=== PATIENT | male | born 1970 | race Caucasian/White ===

== ENCOUNTER 2021-04-15 19:06 | Emergency (ER) | payer OTHER, BC, SELFPAY ==
[2021-04-15 19:17] VITALS: BP 173/103; PULSE 92; RESP 16; TEMP 36.9; O2SAT 100; BMI 31.1
[2021-04-15 19:55] VITALS: BP 168/95
--- NOTE | 2021-04-15 20:14 | PC.NURSE ---
[employer] AWARE OF PT NON-SYMPTOMATIC HIGH BP. PER [employer] PT WILL NEEDED TO F/U WITH PCP.
--- NOTE | 2021-04-15 20:19 | ED.WOUNDLAC ---
HPI - Wound/Laceration General Chief Complaint: Wound/Laceration Stated Complaint: hand lac Time Seen by Provider: 04/15/21 19:47 Source: patient Mode of arrival: ambulatory Limitations: no limitations History of Present Illness HPI narrative: 50-year-old male here with laceration to left hand. Patient tells me he was throwing away a bag of trash when a shard of glass cut his left hand. His tetanus is up-to-date. Denies any numbness, tingling. Related Data Allergies Allergy/AdvReac Type Severity Reaction Status Date / Time Seasonal Allergies Allergy Runny Nose Verified 04/15/21 19:23 Review of Systems Review of Systems: Yes all other systems are reviewed and are negative Constitutional: Constitutional: Reports no additional constitutional complaints, Denies body ache(s), Denies chills, Denies fever(s), Denies headache(s) and Denies weakness Eyes: Eyes: Reports no additional eye complaints and Denies change in vision ENT: Reports system reviewed and no additional complaints, except as documented, Denies dizziness, Denies headache(s), Denies nasal congestion, Denies nasal discharge and Denies neck pain Cardiovascular: Cardiovascular: Reports no additional cardiovascular complaints, Denies chest pain, Denies leg edema and Denies dyspnea Respiratory: Respiratory: Reports no additional respiratory complaints, Denies cough and Denies dyspnea Gastrointestinal: Gastrointestinal: Reports no additional gastrointestinal complaints, Denies abdominal pain, Denies diarrhea, Denies nausea and Denies vomiting Genitourinary: Genitourinary: Denies urinary incontinence Musculoskeletal: Musculoskeletal: Reports no additional musculoskeletal complaints, Denies back pain, Denies arthralgias, Denies joint swelling, Denies neck pain, Denies numbness and Denies tingling Integumentary/Breasts: Skin/Breast: Reports system reviewed and no additional complaints, except as docu and Denies rash Comments: laceration Neurologic: Reports system reviewed and no additional complaints, except as documented, Denies Abnormal speech present, Denies dizziness, Denies headache(s), Denies numbness, Denies tingling and Denies weakness PMFSH Past Medical History Attestation statement: The following information was validated with the patient. Source: old records reviewed and nursing notes reviewed Medical History No known health problems Social History Social History Advance Directives: No Advance Directives Information Provided: No Physical Exam Vital Signs: Vital Signs: Last Vital Signs Temp 98.5 F 04/15/21 19:17 Pulse 92 04/15/21 19:17 Resp 16 04/15/21 19:17 BP 168/95 H 04/15/21 19:55 Pulse Ox 100 04/15/21 19:17 Body Mass Index 31.1 Const: General: cooperative, healthy appearing, comfortable and no acute distress Orientation/consciousness: patient oriented x3 Limitations: no limitations HENMT: Head: Yes normal to inspection Ears: hearing grossly normal bilaterally General nose exam: Normal external nose present Face and sinus: Yes normal facial exam Mouth: Normal oral and palatal mucosa present Throat: Yes posterior oropharynx normal Eyes: General: appearance normal, both eyes and all related structures Pupils: Equal, round and reactive pupils present Neck: Neck: Yes normal visual inspection Chest: Chest palpation & inspection: normal inspection of the chest Resp: Effort & Inspection: normal respiratory effort Auscultation: clear to auscultation bilaterally Cardio: Rate: regular rate Rhythm: regular rhythm Peripheral pulses: Peripheral pulses 2+ throughout GI: Inspection: Yes normal to inspection Palpation (GI): Soft to palpation and nontender Auscultation: normal bowel sounds Back/Spine/Pelvis: Thoracic/Lumbar Spine: thoracic and lumbar spine normal to inspection Skin: General skin exam: no rashes or lesions noted Neuro: General: patient oriented x3, no focal motor deficits and normal sensation to monofilament Cranial nerves: Yes Equal, round and reactive pupils present Cognition (Neuro): normal cognition Speech: No Abnormal speech present Gait exam (Neuro): Normal gait present Motor exam (neuro): 5/5 motor strength present throughout Extrem: Other: to the dorsal aspect of the left hand there is a 1 cm laceration noted with no active bleeding. General: Yes normal to inspection Course Course Course Narrative: superficial laceration to the left hand with no palpable foreign body. Full range of motion of the hand. Bleeding is controlled. Tetanus is up-to-date. See wound repair note. Asymptomatic hypertension which improved on discharge. Patient can follow up with his primary care doctor in regards to this Procedures Procedure Narrative Procedure Narrative: Laceration was cleansed with a hydrogen peroxide and normal saline mixture. The area was closed with skin adhesive with Steri-Strips applied over this. No palpable foreign body MDM - Wound/Laceration Differential Diagnosis Differential diagnosis: Likely laceration Medical Records Attestation: I reviewed the patient's medical records. Lab Data Attestation: I reviewed the patient's lab results. Discharge Plan Discharge Clinical Impression: Laceration Patient Disposition: Home, Self-Care Instructions: Laceration (ED) Referrals: Physician,Unknown [Primary Care Provider] - 2 days Stand Alone Forms: Work/School Release Interventions: ED Discharge Assessment Last Done: 04/15/21 20:12 Discharge Date/Time: 04/15/21 20:17 Print Language: Romanian
== END 2021-04-15 20:17 | disposition home or self-care (01) ==
PROVIDERS: Emergency Provider Emergency Medicine Emergency Medical Services
DX: S61.412A Laceration without foreign body of left hand, initial encounter (principal); W25.XXXA Contact with sharp glass, initial encounter; Y93.E9 Activity, other interior property and clothing maintenance; Y92.9 Unspecified place or not applicable; Y99.9 Unspecified external cause status
CPT/HCPCS: 12011; 99284

== ENCOUNTER 2022-11-21 20:57 | Emergency (ER) | payer OTHER, SELFPAY ==
--- NOTE | 2022-11-21 | ECG_ITS ---
Test Reason : chest pain Blood Pressure : / mmHG Vent. Rate : 074 BPM Atrial Rate : 074 BPM P-R Int : 160 ms QRS Dur : 096 ms QT Int : 382 ms P-R-T Axes : 038 015 107 degrees QTc Int : 424 ms Normal sinus rhythm Moderate voltage criteria for LVH, may be normal variant ( R in aVL , Sokolow-Ambrose ) T wave abnormality, consider lateral ischemia Abnormal ECG No previous ECGs available Referred By: Generic ED Physician Electronically Signed By:Juwan Mustafa
[2022-11-21 21:05] VITALS: BP 153/88; PULSE 80; RESP 18; TEMP 36.6; O2SAT 98; BMI 35.9
--- NOTE | 2022-11-21 21:30 | MHC.EDTECH ---
PT BLOOD DRAWN AND SENT TO LAB ,EKG DONE AND READ BY PROVIDER .
[2022-11-21 21:37] LABS: MANUAL DIFF FLAG NO
[2022-11-21 21:38] LABS: Basophils Absolute Auto 0.1 X10*3/uL (0.0-0.2); Basophils Percent Auto 1.1 % (0-2); Eosinophils Absolute Auto 0.1 X10*3/uL (0.0-0.4); Eosinophils Percent Auto 1.4 % (0-4); Hematocrit 40.6 % (42.0-52.0); Hemoglobin 14.2 g/dl (14.0-18.0); Imm Gran Abs Auto 0.02 X10*3/uL (0.00-0.03); Imm Gran Pct Auto 0.2 % (0.0-0.4); Lymphocytes Absolute Auto 4.2 X10*3/uL (1.2-4.9); Lymphocytes Percent Auto 45.3 % (20-40); Mean Corpuscular Hemoglobin 30.5 pg (27.0-33.0); Mean Corpuscular Volume 87.1 fL (80.0-98.0); Mean Platelet Volume 10.4 fL (9.4-12.4); Monocytes Absolute Auto 0.9 X10*3/uL (0.1-1.2); Monocytes Percent Auto 9.5 % (2-11); Neutrophils Percent Auto 42.5 % (45-73); Platelet Count 211 X10*3/uL (160-400); Red Blood Count 4.66 X10*6/uL (4.60-5.80); Red Cell Distribution Width 13.2 % (11.0-16.0); White Blood Count 9.4 X10*3/uL (4.8-10.8)
[2022-11-21 21:54] LABS: Anion Gap 15 (12-20); Blood Urea Nitrogen 15 mg/dL (9-16); Calcium 8.9 mg/dL (8.4-10.2); Carbon Dioxide 22 mmol/L (22-29); Chloride 105 mmol/L (96-108); Creatinine Clr Calc Pharmacy 121.8; Estimated Glomerular Filt Rate > 60; Glucose Random 150 mg/dL (60-115); Sodium 138 mmol/L (135-145)
[2022-11-21 22:02] LABS: Troponin-I High Sensitivity 5.1 ng/L (<3.5-35.0)
[2022-11-21 23:19] VITALS: BP 124/74; PULSE 69; RESP 18; TEMP 36.6; O2SAT 98
--- NOTE | 2022-11-22 00:07 | ED_ITS ---
HPI - Chest Pain General Chief Complaint: Chest Pain Stated Complaint: chest pain Time Seen by Provider: 11/21/22 23:26 Source: patient Mode of arrival: ambulatory Limitations: no limitations History of Present Illness HPI narrative: patient history of hypertension diagnosed yesterday on lisinopril and hydrochlorothiazide complaining of left-sided chest pain sharp in character with burning sensation in the back pain gets worse on palpation and movements no shortness of breath no diaphoresis no nausea or vomiting no syncope no palpitations Related Data Previous Rx's Medication Instructions Recorded ibuprofen 600 mg tablet 600 mg PO Q6H PRN fever or pain 11/22/22 #30 tabs Allergies Allergy/AdvReac Type Severity Reaction Status Date / Time Seasonal Allergies Allergy Runny Nose Verified 11/21/22 21:07 Review of Systems Review of Systems: Yes all other systems are reviewed and are negative [facility] Past Medical History Medical History No known health problems Social History Social History Advance Directives: No Advance Directives Information Provided: No Physical Exam Vital Signs: Vital Signs: Last Vital Signs Temp 97.8 F 11/21/22 23:19 Pulse 69 11/21/22 23:19 Resp 18 11/21/22 23:19 BP 124/74 11/21/22 23:19 Pulse Ox 98 11/21/22 23:19 O2 Del Method 11/21/22 23:19 BMI result Body Mass Index 35.9 Appearance: Alert. Oriented X3. No acute distress. Eyes: PERRLA, No Nystagmus ENT: Pharynx normal. Oral Mucosa moist Neck: Normal inspection. Neck supple. CVS: Normal heart rate and rhythm. Pulses normal left chest wall tenderness+. Respiratory: No respiratory distress. Equal air entry bilateral, no wheezing/rales/rhonchi Abdomen: Soft and nontender. Bowel sounds are present, no mass palpable, no CVA tenderness Skin: Skin warm and dry. Normal skin color. Normal skin turgor. Extremities: No lower extremity edema. No calf tenderness Neuro: Oriented X 3. No motor deficit. Medications Administered Discontinued Medications Generic Name Dose Route Start Last Admin Trade Name Freq PRN Reason Stop Dose Admin Ibuprofen 600 mg 11/22/22 00:08 11/22/22 00:19 Ibuprofen 600 Mg Tablet PO 11/22/22 00:09 600 mg ONCE ONE Administration Medical Decision Making Medical Decision Making [facility] Narrative: patient with atypical chest pain for more than 24 hours high sensitive troponin negative chest pain is reproducible patient advised to follow with PCP take NSAID Differential Diagnosis ACS/ CAD/ costochondritis Lab Data [facility] Lab Attestation statement: I reviewed the patient's lab results. 11/21/22 21:29 11/21/22 21:29 Labs: Lab Results 11/21/22 11/21/22 11/21/22 Range/Units 21:29 21:29 21:29 WBC 9.4 (4.8-10.8) X10*3/uL RBC 4.66 (4.60-5.80) X10*6/uL Hgb 14.2 (14.0-18.0) g/dl Hct 40.6 L (42.0-52.0) % MCV 87.1 (80.0-98.0) fL MCH 30.5 (27.0-33.0) pg MCHC 35.0 (31.0-36.0) g/dl RDW 13.2 (11.0-16.0) % Plt Count 211 (160-400) X10*3/uL MPV 10.4 (9.4-12.4) fL Immature Gran % (Auto) 0.2 (0.0-0.4) % Neut % (Auto) 42.5 L (45-73) % Lymph % (Auto) 45.3 H (20-40) % [place] % (Auto) 9.5 (2-11) % Eos % (Auto) 1.4 (0-4) % Baso % (Auto) 1.1 (0-2) % Lymph # (Auto) 4.2 (1.2-4.9) X10*3/uL [place] # (Auto) 0.9 (0.1-1.2) X10*3/uL Eos # (Auto) 0.1 (0.0-0.4) X10*3/uL Baso # (Auto) 0.1 (0.0-0.2) X10*3/uL Abs Immat Gran (auto) 0.02 (0.00-0.03) X10*3/uL Absolute Neuts (auto) 4.0 (2.0-8.3) x10*3/uL Absolute Nucleated RBC 0.000 (0.0-0.012) X10*3/uL Nucleated RBC % (auto) 0.0 (0.0-0.2) /100WBC Sodium 138 (135-145) mmol/L Potassium 4.0 (3.3-5.1) mmol/L Chloride 105 (96-108) mmol/L Carbon Dioxide 22 (22-29) mmol/L Anion Gap 15 (12-20) BUN 15 (9-16) mg/dL Creatinine 0.86 (0.5-1.4) mg/dL Estim Creat Clear Calc 121.8 Estimated GFR > 60 Random Glucose 150 H (60-115) mg/dL Calcium 8.9 (8.4-10.2) mg/dL Troponin I High Sens 5.1 (<3.5-35.0) ng/L Independent Interpretation I performed an independent interpretation of an: EKG Interpretation: normal sinus rhythm heart rate 74 beats per minute LVH with T inversion in lateral leads no acute ischemia Discharge Plan Discharge Clinical Impression: Costalchondritis Patient Disposition: Home, Self-Care Instructions: Costochondritis (ED) Additional Instructions: take ibuprofen for pain your pain is likely from inflammation of the cartilage if pain continues follow-up with PCP Prescriptions: New ibuprofen 600 mg tablet 600 mg PO Q6H PRN (Reason: fever or pain) Qty: 30 0RF Stand Alone Forms: Work/School Release Interventions: ED Discharge Assessment Last Done: 11/22/22 00:22 Discharge Date/Time: 11/22/22 00:22
[2022-11-22] MEDS: Ibuprofen 600 MG TABLET PO (00:19)
== END 2022-11-22 00:22 | disposition home or self-care (01) ==
PROVIDERS: Emergency Provider Internal Medicine
DX: M94.0 Chondrocostal junction syndrome [Tietze] (principal); I10 Essential (primary) hypertension
CPT/HCPCS: 36415; 80048; 84484; 85025; 93005; 99283; 99285

== ENCOUNTER 2023-07-18 05:01 | Emergency (ER) | payer OTHER, SELFPAY ==
[2023-07-18 05:08] VITALS: BP 150/96; PULSE 75; O2SAT 98
[2023-07-18 05:20] VITALS: BP 156/81; PULSE 77; RESP 16; TEMP 36.9; O2SAT 97; BMI 38.7
[2023-07-18 05:21] VITALS: BP 156/81; PULSE 77; RESP 16; TEMP 36.9; O2SAT 97
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
[2023-07-18 06:22] VITALS: BP 128/79; PULSE 61; RESP 16; TEMP 36.6; O2SAT 97
== END 2023-07-18 07:18 | disposition home or self-care (01) ==
PROVIDERS: Emergency Provider Emergency Medicine
DX: S13.9XXA Sprain of joints and ligaments of unspecified parts of neck, initial encounter (principal); S19.9XXA Unspecified injury of neck, initial encounter; R10.84 Generalized abdominal pain; M54.2 Cervicalgia; R51.9 Headache, unspecified; V43.53XA Car driver injured in collision with pick-up truck in traffic accident, initial encounter; Y93.9 Activity, unspecified; Y92.410 Unspecified street and highway as the place of occurrence of the external cause; Y99.9 Unspecified external cause status
CPT/HCPCS: 72125; 74176; 99284

== ENCOUNTER 2023-09-09 08:28 | Outpatient (REF) | payer OTHER, SELFPAY ==
[2023-09-09 09:15] LABS: Estimated Average Glucose 146 mg/dL; Hemoglobin A1c % 6.7 % (<6.0)
[2023-09-09 09:49] LABS: Alanine Aminotransferase 69 U/L (0-40); Albumin Level 4.2 g/dL (3.5-5.0); Alkaline Phosphatase 60 U/L (39-117); Anion Gap 13 (12-20); Aspartate Amino Transferase 46 U/L (5-37); Bilirubin Direct 0.2 mg/dL (0.0-0.5); Bilirubin Total 0.6 mg/dL (0.0-1.0); Blood Urea Nitrogen 14 mg/dL (9-16); Calcium 8.9 mg/dL (8.4-10.2); Carbon Dioxide 22 mmol/L (22-29); Chloride 108 mmol/L (96-108); Cholesterol 180 mg/dL (<200); Estimated Glomerular Filt Rate > 60; Glucose Random 130 mg/dL (60-115); HDL Cholesterol 34 mg/dL (>40); LDL Cholesterol Calculated 118 mg/dL (<100); Sodium 139 mmol/L (135-145); Total Protein 7.2 g/dL (6.5-8.0); Triglycerides 142 mg/dL (<150)
[2023-09-09 12:48] LABS: Creatinine Urine 166.32 mg/dL
== END 2023-09-09 08:29 | disposition home or self-care (01) ==
LOC: HO.LAB 08:28
PROVIDERS: PCP Nurse Practitioner Primary Care; Visit Provider Nurse Practitioner Primary Care
DX: R10.13 Epigastric pain (principal); R73.01 Impaired fasting glucose; I10 Essential (primary) hypertension; R79.89 Other specified abnormal findings of blood chemistry
CPT/HCPCS: 36415; 80048; 80061; 80076; 82043; 82570; 83036; 87338

== ENCOUNTER 2024-05-15 15:25 | Outpatient (AMB) | payer OTHER, SELFPAY ==
--- NOTE | 2024-05-15 15:57 | MHC.OFFVIS ---
Vital Signs 05/15/24 16:12 Height 5 ft 6 in Weight 240 lb 4.862 oz BMI 38.8 BP 161/93 H Blood Pressure Location Lt brachial Position Sitting Pulse 69 Intake Visit Reasons: Epigastric pain Intake Note: Rodrigo presents to in office visit today for epigastric pain. CC: Patient c/o epigastric pain. Denies other GI symptoms or concerns. 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 He is referred by [facility]. PMX Allergic rhinitis Morbid obesity Hypertension Costochondritis Impaired fasting glucose * SURGICAL HISTORY Pt denies * ALLERGIES: NKDA * [employer] LABS: Laboratory Tests 09/09/23 09/09/23 08:55 09:30 Estimated GFR > 60 Hemoglobin A1c % 6.7 H Total Bilirubin 0.6 Direct Bilirubin 0.2 AST 46 H ALT 69 H Alkaline Phosphatase 60 Stool H. pylori Ag negative TODAY'S VISIT [place] [employer] He has been having upper abd bloating for several years now. He denies outright pain. The only pain he has is in his head and neck. He gets bloated after eating, and finds it worse with salty foods like chips, fried foods, street hamburger. He usually cooks for himself at home. He is also c/o dysphagia in the oropharyngeal area. This is worse with meats, no so much with rice or pasta. No problem with liquids. He denies CIC or diarrhea. He had a negative HP test at [facility]. No wt loss or gain. No known FHX food allergies. He has transaminitis that is followed by [facility] and his PCP, they did a work up for this in July. He denies any cardiac or respiratory problems He is naive to anesthesia and sedation. No ID problems. There is no known FHX of crc, polyps or stomach cancer. Given the fact that his symptoms are rather vague and not severe I will see him after the procedures and the barium swallow. [facility] Surgical History No pertinent past surgical history Family History Son Pancreatic cancer Social History Alcohol intake: former Patient Tobacco Use Status: Never used Tobacco Use of substances other than those prescribed or required for medical reasons: No Review of Systems Const Denies fatigue, Denies fever(s), Denies night sweats, Denies poor appetite and Denies weight loss ENT Reports Normal hearing present, Denies dental pain, Reports dysphagia, Denies hearing loss, Denies mouth pain, Denies odynophagia, Denies throat swelling, Denies tongue swelling and Reports other (Dentition adequate) Card Reports no additional complaints Resp Reports no additional complaints GI Details: Reports abdominal pain, Denies melena, Reports bloating, Denies hematochezia, Denies constipation, Denies GI cramping, Reports dysphagia, Denies excessive flatus, Denies early satiety, Denies heartburn, Denies diarrhea, Denies nausea, Denies odynophagia, Denies vomiting and Denies hematemesis Skin/Breast Denies pruritus, Denies lesions, Denies rash and Denies jaundice Neuro Reports Normal hearing present and Denies Abnormal speech present Endo Denies fatigue Aller/Immun Denies throat swelling and Denies tongue swelling Physical Exam Vital Signs: Last Vital Signs Pulse 69 05/15/24 16:12 BP 161/93 H 05/15/24 16:12 BMI result Body Mass Index 38.8 Const General: cooperative, no acute distress, well developed and well groomed Nutritional Appearance: well nourished and obese centrally obese Orientation/consciousness: oriented to person, oriented to place and oriented to time Limitations: language barrier HEENT Head: Yes normocephalic and Yes atraumatic Eyes General: appearance normal, both eyes and all related structures Pupils: Equal, round and reactive pupils present Neck Neck: Yes normal visual inspection and Yes no lymphadenopathy Thyroid: Thyroid normal Resp Effort & Inspection: normal respiratory effort and able to speak in complete sentences Auscultation: clear to auscultation bilaterally Cardio Rate: regular rate Rhythm: regular rhythm Heart sounds: Normal, physiologic split S2 sound present Peripheral pulses: radial pulses present and posterior tibial pulses present GI Inspection: No distended, No Abdominal panniculus present and Yes obesity Palpation (GI): Soft to palpation, nontender, no guarding, not rigid and No hepatosplenomegaly present Percussion: Yes normal to percussion Auscultation: normal bowel sounds Rectal Exam - Male: Yes deferred Skin General skin exam: no rashes or lesions noted, turgor normal, skin not dry, no jaundice, No spider nevi and no striae Rashes: no rashes Nails: normal Neuro General: oriented to person, oriented to place and oriented to time Cranial nerves: Yes Equal, round and reactive pupils present and Yes Normal hearing present Speech: No Abnormal speech present Extrem General: Yes normal to inspection, No clubbing, No cyanosis and No edema Psych Appearance: grossly normal and well kempt Mental Status: mental status grossly normal Speech and movement: Normal speech and movement present Affect: normal affect Attitude: cooperative Thought process: not confabulating and Impoverished thought process present Thought content: Normal thought content present Insight: Limited insight present (Psych) Judgement: Limited judgement present (Psych) Assessment & Plan Assessment & Plan (1) Upper abdominal pain: Code(s): R10.10 - Upper abdominal pain, unspecified Category: Medical (2) Dysphagia: Code(s): R13.10 - Dysphagia, unspecified Category: Medical (3) Abdominal bloating: Code(s): R14.0 - Abdominal distension (gaseous) Category: Medical Plan [place] [employer] He has been having upper abd bloating for several years now. He denies outright pain. The only pain he has is in his head and neck. He gets bloated after eating, and finds it worse with salty foods like chips, fried foods, street hamburger. He usually cooks for himself at home. He is also c/o dysphagia in the oropharyngeal area. This is worse with meats, no so much with rice or pasta. No problem with liquids. He denies CIC or diarrhea. He had a negative HP test at [facility]. No wt loss or gain. No known FHX food allergies. He has transaminitis that is followed by [facility] and his PCP, they did a work up for this in July. He denies any cardiac or respiratory problems He is naive to anesthesia and sedation. No ID problems. There is no known FHX of crc, polyps or stomach cancer. Given the fact that his symptoms are rather vague and not severe I will see him after the procedures and the barium swallow. Orders: Orders [place] barium swallow Today R10.10 - Upper abdominal pain, unspecified, R13.10 - Dysphagia, unspecified, R14.0 - Abdominal distension (gaseous) EGD/Mohler Combo - GI Use Only Today R10.10 - Upper abdominal pain, unspecified, R13.10 - Dysphagia, unspecified, R14.0 - Abdominal distension (gaseous) US abdomen complete Today R10.10 - Upper abdominal pain, unspecified, R14.0 - Abdominal distension (gaseous) Medications: New peg 3350-electrolytes [id number] -5.86 gram (Golytely) until fecal effluent is clear; do not exceed a total volume of 2,000 mL 240 mL PO Q10M 4,000 mL 0RF 1 day Z12.11 - Encounter for screening for malignant neoplasm of colon bisacodyl (Dulcolax (bisacodyl)) 10 mg (2 x 5 mg) PO BEDTIME 4 tabs 0RF 2 days Coding Level of Care Code New Pt Level 3 (78770) Diagnoses Upper abdominal pain R10.10 Dysphagia R13.10 Abdominal bloating R14.0
[2024-05-15 16:12] VITALS: BP 161/93; PULSE 69; BMI 38.8
== END 2024-05-15 16:43 | disposition home or self-care (01) ==
LOC: HO.HGI 15:25
PROVIDERS: PCP Nurse Practitioner Primary Care; Visit Provider Nurse Practitioner
DX: R10.10 Upper abdominal pain, unspecified (principal); R13.10 Dysphagia, unspecified; R14.0 Abdominal distension (gaseous)
CPT/HCPCS: 99203

== ENCOUNTER → 2024-05-15 15:25 | Outpatient (BNVA) | payer OTHER, SELFPAY | PROVIDERS: PCP Nurse Practitioner Primary Care; Visit Provider Nurse Practitioner ==

== ENCOUNTER 2024-09-23 09:05 | Outpatient (REF) | payer OTHER, SELFPAY ==
[2024-09-23 12:39] LABS: Estimated Average Glucose 128 mg/dL; Hemoglobin A1C 155.7914 umol/L; Hemoglobin A1c % 6.1 % (<6.0); Total Hemoglobin (HGBA1C) 3646.6335 umol/L
[2024-09-23 12:45] LABS: Alanine Aminotransferase 57 U/L (0-40); Albumin Level 4.4 g/dL (3.5-5.0); Alkaline Phosphatase 54 U/L (39-117); Anion Gap 11 (12-20); Aspartate Amino Transferase 37 U/L (5-37); Bilirubin Direct 0.2 mg/dL (0.0-0.5); Bilirubin Total 0.6 mg/dL (0.0-1.0); Blood Urea Nitrogen 19 mg/dL (9-16); Calcium 9.1 mg/dL (8.4-10.2); Carbon Dioxide 27 mmol/L (22-29); Chloride 105 mmol/L (96-108); Cholesterol 186 mg/dL (<200); Estimated Glomerular Filt Rate > 60; Glucose Random 129 mg/dL (60-115); HDL Cholesterol 36 mg/dL (>40); LDL Cholesterol Calculated 125 mg/dL (<100); Potassium 3.9 mmol/L (3.3-5.1); Sodium 139 mmol/L (135-145); Total Protein 7.4 g/dL (6.5-8.0); Triglycerides 128 mg/dL (<150)
[2024-09-23 13:10] LABS: Creatinine Urine 191.58 mg/dL; Microalbum/Creatinine Ratio Ur 15.6 ug/mg cr (<30)
== END 2024-09-23 09:06 | disposition home or self-care (01) ==
LOC: HO.HHCL 09:05
PROVIDERS: Visit Provider Nurse Practitioner Primary Care
DX: R73.03 Prediabetes (principal); R79.89 Other specified abnormal findings of blood chemistry; I10 Essential (primary) hypertension
CPT/HCPCS: 36415; 80048; 80061; 80076; 82043; 82570; 83036